=== PATIENT | male | born 1965 | race Caucasian/White ===

== ENCOUNTER 2016-04-05 06:48 | Day surgery (SDC) | payer OTHER ==
[~2016-04-05] VITALS: Ht 167.6 cm; Wt 75.1 kg
[2016-04-05 07:35] VITALS: Ht 167.6 cm; Wt 75.1 kg
[2016-04-05 07:56] VITALS: BP 124/72; PULSE 58; RESP 18
[2016-04-05] MEDS ORDERED: FENTAnyl 50 MCG/ML VIAL ONE (08:44)
[2016-04-05] MEDS ORDERED: MIDAZOLAM 1 MG/ML 2 ML INJ ONE ×2 (08:44)
[2016-04-05 08:50] VITALS: BP 103/65; PULSE 103; RESP 19
--- NOTE | 2016-04-05 12:08 | GILP ---
DATE OF PROCEDURE: NAME OF PROCEDURE: Colonoscopy. PREOPERATIVE DIAGNOSIS: Screening colonoscopy to rule out colon polyps. POSTOPERATIVE DIAGNOSES: Ulcer noted which is a 1-cm ulcer in the mid transverse colon. Biopsy was done. Occasional diverticula noted in the ascending colon. Minimal external hemorrhoids were note d. DESCRIPTION OF PROCEDURE: After the informed written consent was obtained, the patient was asked to lie on the left lateral side. The patient was given 4 mg Versed and 100 mcg of fentanyl as intrave nous anesthesia. When the patient became somnolent, the Olympus video colonoscope was introduced into the rectum and scope was advanced all the way to the cecum. A 1 cm linear ulcer was noted in the mid transverse co courtney. This did not appear to be malignant. This appeared to be benign. Biopsies were done. Occasi onal diverticula noted in the ascending colon. No evidence of polyps noted. On the way out, carefu l examination was carried out. No additional abnormalities detected. Internal hemorrhoids were not seen. When the scope was withdrawn, minimal external hemorrhoids were noted and the procedure was terminated. PLAN: 1. Recommend wait for the pathology report. 2. Recommend also repeat colonoscopy in 10 years. Dictated By: TUAN VALENZUELA/MARILYN Conf#: [id number] DID#: [id number] CC: Pooja MITCHELL;*EndCC*
== END 2016-04-05 09:03 | disposition home or self-care (01) ==
LOC: GIL 06:48
PROVIDERS: ATTEND Internal Medicine Gastroenterology
DX: Z12.11 Encounter for screening for malignant neoplasm of colon (principal); K63.3 Ulcer of intestine
CPT/HCPCS: 45380; 88305; J2250; J3010; Z7610